=== PATIENT | female | born 1955 | race Caucasian/White ===

== ENCOUNTER 2018-11-28 01:02 | Emergency (ER) | payer BC ==
--- NOTE | 2018-11-28 01:20 | EDM.PDOC ---
ED HPI GENERAL MEDICAL PROBLEM - General Chief Complaint: Cardiovascular Problem Stated Complaint: HIGH BLOOD PRESSURE Time Seen by Provider: 11/28/18 01:20 Source of Information: Reports: Patient - History of Present Illness INITIAL COMMENTS - FREE TEXT/NARRATIVE: HISTORY AND PHYSICAL: History of present illness: [Patient presents with hypertension Over the last couple of weeks she has had an admission for A. fib with RVR, started on 0 to at that time since she's been checking her blood pressures fairly frequently tonight she had some elevated readings which prompted more taking of blood pressure which I feel resulted in more elevation of the blood pressure, he has some anxiety about her health However with reassurance her blood pressures fairly well-controlled in town in the 140s over 70s at this time She has no symptoms whatsoever such as fever nausea vomiting diarrhea constipation chest pain shortness breath headache dizziness palpitation no bowel or urine symptoms ] Review of systems: As per history of present illness and below otherwise all systems reviewed and negative. Past medical history: As per history of present illness and as reviewed below otherwise noncontributory. Surgical history: As per history of present illness and as reviewed below otherwise noncontributory. Social history: No reported history of drug or alcohol abuse. Family history: As per history of present illness and as reviewed below otherwise noncontributory. Physical exam: HEENT: Atraumatic, normocephalic, pupils reactive, negative for conjunctival pallor or scleral icterus, mucous membranes moist, throat clear, neck supple, nontender, trachea midline. Lungs: Clear to auscultation, breath sounds equal bilaterally, chest nontender. Heart: S1S2, regular, negative for clicks, rubs, or JVD. Abdomen: Soft, nondistended, nontender. Negative for masses or hepatosplenomegaly. Negative for costovertebral tenderness. Pelvis: Stable nontender. Genitourinary: Deferred. Rectal: Deferred. Extremities: Atraumatic, negative for cords or calf pain. Neurovascular unremarkable. Neuro: Awake, alert, oriented. Cranial nerves II through XII unremarkable. Cerebellum unremarkable. Motor and sensory unremarkable throughout. Exam nonfocal. Diagnostics: []CBC CMP UA troponin EKG Chest 1 view Therapeutics: [] none Impression: [] medical screening exam anxiety about health Chronic history of baseline Definitive disposition and diagnosis as appropriate pending reevaluation and review of above. - Related Data Allergies Allergy/AdvReac Type Severity Reaction Status Date / Time apixaban [From Eliquis] Allergy Hives Verified 11/28/18 01:17 cephalexin monohydrate Allergy Rash Verified 11/28/18 01:17 [From Keflex] diltiazem [From Cardizem] Allergy Hives Verified 11/28/18 01:17 morphine Allergy Itching Verified 11/28/18 01:17 Home Meds: Home Meds hydroCHLOROthiazide [Hydrochlorothiazide] 1 tab PO DAILY 02/07/15 [History] Metoprolol Tartrate [Lopressor] 100 mg PO DAILY #30 tablet 11/06/18 [Rx] Rivaroxaban [Xarelto] 1 tab PO DAILY 11/28/18 [History] metFORMIN [Glucophage XR] 1 tab PO DAILY 11/28/18 [History] Past Medical History HEENT History: Reports: None Cardiovascular History: Reports: Afib, Hypertension Respiratory History: Reports: None Gastrointestinal History: Reports: None Genitourinary History: Reports: None [employer]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: Musculoskeletal History: Reports: None Neurological History: Reports: None Psychiatric History: Reports: None Endocrine/Metabolic History: Reports: None Hematologic History: Reports: None Immunologic History: Reports: None Oncologic (Cancer) History: Reports: None Dermatologic History: Reports: None - Infectious Disease History Infectious Disease History: Reports: Chicken Pox, Measles, Shingles - Past Surgical History Head Surgeries/Procedures: Reports: None GI Surgical History: Reports: Cholecystectomy Female Surgical History: Reports: Section, Cystectomy, Hysterectomy , Oophorectomy, Tubal Ligation, Other (See Below) Musculoskeletal Surgical History: Reports: Hip Replacement, Joint Replacement, Knee Replacement, Other (See Below) Social & Family History - Family History Family Medical History: Noncontributory - Caffeine Use Caffeine Use: Reports: Coffee ED ROS GENERAL - Review of Systems Review Of Systems: See Below ED EXAM, GENERAL - Physical Exam Exam: See Below Course - Vital Signs Last Recorded V/S: Last Vital Signs Temp 96.6 F 11/28/18 01:02 Pulse 51 L 11/28/18 02:03 Resp 16 11/28/18 02:03 BP 148/76 H 11/28/18 02:03 Pulse Ox 94 L 11/28/18 02:03 - Orders/Labs/Meds Orders: Active Orders 24 hr Category Date Time Status EKG 12 Lead [EKG Documentation Completion] [RC] STAT Care 11/28/18 02:12 Active Labs: Laboratory Tests 11/28/18 11/28/18 11/28/18 Range/Units 01:40 01:40 01:40 WBC 6.59 (4.0-11.0) K/uL RBC 4.86 (4.30-5.90) M/uL Hgb 14.3 (12.0-16.0) g/dL Hct 42.3 (36.0-46.0) % MCV 87.0 (80.0-98.0) fL MCH 29.4 (27.0-32.0) pg MCHC 33.8 (31.0-37.0) g/dL RDW Std Deviation 44.8 (28.0-62.0) fl RDW Coeff of Piyush 14 (11.0-15.0) % Plt Count 208 (150-400) K/uL MPV 11.20 (7.40-12.00) fL Neut % (Auto) 83.3 H (48.0-80.0) % Lymph % (Auto) 12.7 L (16.0-40.0) % [place] % (Auto) 3.2 (0.0-15.0) % Eos % (Auto) 0.3 (0.0-7.0) % Baso % (Auto) 0.5 (0.0-1.5) % Neut # (Auto) 5.5 (1.4-5.7) K/uL Lymph # (Auto) 0.8 (0.6-2.4) K/uL [place]ruff # (Auto) 0.2 (0.0-0.8) K/uL Eos # (Auto) 0.0 (0.0-0.7) K/uL Baso # (Auto) 0.0 (0.0-0.1) K/uL Nucleated RBC % 0.0 /100WBC Nucleated RBCs # 0 K/uL INR 1.44 Sodium (136-145) mmol/L Potassium (3.5-5.1) mmol/L Chloride (98-107) mmol/L Carbon Dioxide (21.0-32.0) mmol/L BUN (7.0-18.0) mg/dL Creatinine (0.6-1.0) mg/dL Est Cr Clr Drug Dosing mL/min Estimated GFR (MDRD) ml/min Glucose (74-106) mg/dL Calcium (8.5-10.1) mg/dL Total Bilirubin (0.2-1.0) mg/dL AST (15-37) IU/L ALT (14-63) IU/L Alkaline Phosphatase (46-116) U/L Troponin I (0.000-0.056) ng/mL Total Protein (6.4-8.2) g/dL Albumin (3.4-5.0) g/dL Globulin (2.6-4.0) g/dL Albumin/Globulin Ratio (0.9-1.6) Urine Color YELLOW Urine Appearance CLEAR Urine pH 5.5 (5.0-8.0) Ur Specific [place] <= 1.005 (1.001-1.035) Urine Protein NEGATIVE (NEGATIVE) mg/dL Urine Glucose (UA) NEGATIVE (NEGATIVE) mg/dL Urine Ketones NEGATIVE (NEGATIVE) mg/dL Urine Occult Blood SMALL H (NEGATIVE) Urine Nitrite NEGATIVE (NEGATIVE) Urine Bilirubin NEGATIVE (NEGATIVE) Urine Urobilinogen 0.2 (<2.0) EU/dL Ur Leukocyte Esterase NEGATIVE (NEGATIVE) Urine RBC 0-2 (0-2/HPF) Urine WBC 0-1 (0-5/HPF) Ur Epithelial Cells FEW (NONE-FEW) Urine Bacteria RARE (NEGATIVE) 11/28/18 Range/Units 01:40 WBC (4.0-11.0) K/uL RBC (4.30-5.90) M/uL Hgb (12.0-16.0) g/dL Hct (36.0-46.0) % MCV (80.0-98.0) fL MCH (27.0-32.0) pg MCHC (31.0-37.0) g/dL RDW Std Deviation (28.0-62.0) fl RDW Coeff of Piyush (11.0-15.0) % Plt Count (150-400) K/uL MPV (7.40-12.00) fL Neut % (Auto) (48.0-80.0) % Lymph % (Auto) (16.0-40.0) % [place]ruff % (Auto) (0.0-15.0) % Eos % (Auto) (0.0-7.0) % Baso % (Auto) (0.0-1.5) % Neut # (Auto) (1.4-5.7) K/uL Lymph # (Auto) (0.6-2.4) K/uL [place] # (Auto) (0.0-0.8) K/uL Eos # (Auto) (0.0-0.7) K/uL Baso # (Auto) (0.0-0.1) K/uL Nucleated RBC % /100WBC Nucleated RBCs # K/uL INR Sodium 138 (136-145) mmol/L Potassium 3.8 (3.5-5.1) mmol/L Chloride 100 (98-107) mmol/L Carbon Dioxide 26.9 (21.0-32.0) mmol/L BUN 22 H (7.0-18.0) mg/dL Creatinine 1.0 (0.6-1.0) mg/dL Est Cr Clr Drug Dosing 58.84 mL/min Estimated GFR (MDRD) 56.2 ml/min Glucose 126 H (74-106) mg/dL Calcium 8.9 (8.5-10.1) mg/dL Total Bilirubin 0.4 (0.2-1.0) mg/dL AST 19 (15-37) IU/L ALT 36 (14-63) IU/L Alkaline Phosphatase 66 (46-116) U/L Troponin I < 0.050 (0.000-0.056) ng/mL Total Protein 6.9 (6.4-8.2) g/dL Albumin 3.4 (3.4-5.0) g/dL Globulin 3.5 (2.6-4.0) g/dL Albumin/Globulin Ratio 1.0 (0.9-1.6) Urine Color Urine Appearance Urine pH (5.0-8.0) Ur Specific [place] (1.001-1.035) Urine Protein (NEGATIVE) mg/dL Urine Glucose (UA) (NEGATIVE) mg/dL Urine Ketones (NEGATIVE) mg/dL Urine Occult Blood (NEGATIVE) Urine Nitrite (NEGATIVE) Urine Bilirubin (NEGATIVE) Urine Urobilinogen (<2.0) EU/dL Ur Leukocyte Esterase (NEGATIVE) Urine RBC (0-2/HPF) Urine WBC (0-5/HPF) Ur Epithelial Cells (NONE-FEW) Urine Bacteria (NEGATIVE) Meds: Medications Discontinued Medications Generic Name Dose Route Start Last Admin Trade Name Maria Elena PRN Reason Stop Dose Admin Lorazepam 1 mg 11/28/18 02:00 11/28/18 02:10 Ativan PO 11/28/18 02:01 Not Given ONETIME ONE Departure - Departure Time of Disposition: 02:35 Disposition: Home, Self-Care 01 Condition: Good Clinical Impression: Anxiety about health, Encounter for medical screening examination Referrals: Clare Wright NP [Primary Care Provider] - Forms: ED Department Discharge Additional Instructions: The following information is given to patients seen in the emergency department who are being discharged to home. This information is to outline your options for follow-up care. We provide all patients seen in our emergency department with a follow-up referral. The need for follow-up, as well as the timing and circumstances, are variable depending upon the specifics of your emergency department visit. If you don't have a primary care physician on staff, we will provide you with a referral. We always advise you to contact your personal physician following an emergency department visit to inform them of the circumstance of the visit and for follow-up with them and/or the need for any referrals to a consulting specialist. The emergency department will also refer you to a specialist when appropriate. This referral assures that you have the opportunity for follow-up care with a specialist. All of these measure are taken in an effort to provide you with optimal care, which includes your follow-up. Under all circumstances we always encourage you to contact your private physician who remains a resource for coordinating your care. When calling for follow-up care, please make the office aware that this follow-up is from your recent emergency room visit. If for any reason you are refused follow-up, please contact the [facility] emergency department at and asked to speak to the emergency department charge nurse. - My Orders Last 24 Hours: My Active Orders 11/28/18 02:12 EKG 12 Lead [EKG Documentation Completion] [RC] STAT - Assessment/Plan Last 24 Hours: My Active Orders 11/28/18 02:12 EKG 12 Lead [EKG Documentation Completion] [RC] STAT
[2018-11-28] MEDS ORDERED: LORazepam 1 MG Tab PO ONE (02:00)
[2018-11-28 02:22] LABS: CHLORIDE,CL 100 mmol/L (98-107); SODIUM,NA 138 mmol/L (136-145)
[2018-11-28 02:38] VITALS: BP 148/73
== END 2018-11-28 02:45 | disposition home or self-care (01) ==
LOC: MW.ED 01:02
DX: I10 Essential (primary) hypertension (principal); F41.9 Anxiety disorder, unspecified; I48.91 Unspecified atrial fibrillation; Z79.01 Long term (current) use of anticoagulants; Z79.84 Long term (current) use of oral hypoglycemic drugs; Z79.899 Other long term (current) drug therapy; Z88.4 Allergy status to anesthetic agent; Z88.1 Allergy status to other antibiotic agents; Z88.8 Allergy status to other drugs, medicaments and biological substances; Z90.710 Acquired absence of both cervix and uterus; Z90.49 Acquired absence of other specified parts of digestive tract; Z98.890 Other specified postprocedural states
CPT/HCPCS: 36415; 80053; 81001; 84484; 85025; 85610; 93005; 99284-25

== ENCOUNTER 2018-12-04 23:58 | Emergency (ER) | payer BC ==
[2018-12-05] MEDS ORDERED: Diltiazem 25 MG/5 ML SDV IVPUSH ONE (00:07)
[2018-12-05] MEDS ORDERED: Sodium Chloride 0.9% 10 ML Syringe FLUSH PRN (00:07)
[2018-12-05] MEDS ORDERED: Sodium Chloride 0.9% 2.5 ML Syringe FLUSH PRN (00:07)
--- NOTE | 2018-12-05 00:09 | EDM.PDOC ---
ED HPI GENERAL MEDICAL PROBLEM - General Stated Complaint: IRREGULAR HEART BEAT Time Seen by Provider: 12/05/18 00:06 - History of Present Illness INITIAL COMMENTS - FREE TEXT/NARRATIVE: HISTORY AND PHYSICAL: History of present illness: Patient is a 63-year-old female history of atrial fibrillation was recently diagnosed in October for which she was treated and converted sinus rhythm is currently on Xarelto and metoprolol who presents tonight with concern of palpitations Review of systems: As per history of present illness and below otherwise all systems reviewed and negative. Past medical history: As per history of present illness and as reviewed below otherwise noncontributory. Surgical history: As per history of present illness and as reviewed below otherwise noncontributory. Social history: No reported history of drug or alcohol abuse. Family history: As per history of present illness and as reviewed below otherwise noncontributory. Physical exam: HEENT: Atraumatic, normocephalic, pupils reactive, negative for conjunctival pallor or scleral icterus, mucous membranes moist, throat clear, neck supple, nontender, trachea midline. Lungs: Clear to auscultation, breath sounds equal bilaterally, chest nontender. Heart: S1S2, irregularly irregular, negative for clicks, rubs, or JVD. Abdomen: Soft, nondistended, nontender. Negative for masses or hepatosplenomegaly. Negative for costovertebral tenderness. Pelvis: Stable nontender. Genitourinary: Deferred. Rectal: Deferred. Extremities: Atraumatic, negative for cords or calf pain. Neurovascular unremarkable. Neuro: Awake, alert, oriented. Cranial nerves II through XII unremarkable. Cerebellum unremarkable. Motor and sensory unremarkable throughout. Exam nonfocal. Diagnostics: CBC CMP troponin chest x-ray EKG Therapeutics: IV O2 monitor Cardizem 20 mg IV Impression: #1 atrial fib/flutter with rapid ventricular response Definitive disposition and diagnosis as appropriate pending reevaluation and review of above. - Related Data Allergies Allergy/AdvReac Type Severity Reaction Status Date / Time apixaban [From Eliquis] Allergy Hives Verified 12/05/18 00:15 cephalexin monohydrate Allergy Rash Verified 12/05/18 00:15 [From Keflex] diltiazem [From Cardizem] Allergy Hives Verified 12/05/18 00:15 morphine Allergy Itching Verified 12/05/18 00:15 Home Meds: Home Meds hydroCHLOROthiazide [Hydrochlorothiazide] 1 tab PO DAILY 02/07/15 [History] Metoprolol Tartrate [Lopressor] 100 mg PO DAILY #30 tablet 11/06/18 [Rx] Rivaroxaban [Xarelto] 1 tab PO DAILY 11/28/18 [History] metFORMIN [Glucophage XR] 1 tab PO DAILY 11/28/18 [History] Past Medical History HEENT History: Reports: None Cardiovascular History: Reports: Afib, Hypertension Respiratory History: Reports: None Gastrointestinal History: Reports: None Genitourinary History: Reports: None [employer]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: Musculoskeletal History: Reports: None Neurological History: Reports: None Psychiatric History: Reports: None Endocrine/Metabolic History: Reports: None Hematologic History: Reports: None Immunologic History: Reports: None Oncologic (Cancer) History: Reports: None Dermatologic History: Reports: None - Infectious Disease History Infectious Disease History: Reports: Chicken Pox, Measles, Shingles - Past Surgical History Head Surgeries/Procedures: Reports: None GI Surgical History: Reports: Cholecystectomy Female Surgical History: Reports: Section, Cystectomy, Hysterectomy , Oophorectomy, Tubal Ligation, Other (See Below) Musculoskeletal Surgical History: Reports: Hip Replacement, Joint Replacement, Knee Replacement, Other (See Below) Social & Family History - Family History Family Medical History: Noncontributory - Caffeine Use Caffeine Use: Reports: Coffee ED ROS GENERAL - Review of Systems Review Of Systems: ROS reveals no pertinent complaints other than HPI. ED EXAM, GENERAL - Physical Exam Exam: See Below (See dictation) Course - Vital Signs Text/Narrative:: Patient emergency department course has been unremarkable sure rate is been controlled well she was given an additional dose of metoprolol her cardiac enzymes been negative her symptoms of improved dramatically she is currently still in atrial fibrillation but with a controlled ventricular response I discussed with her her recent admission her workup and her current therapy and gave her options including transfer to another institution for observation in light of the absence of available beds here at this time patient requests discharge to home with follow-up in a.m. with her private medical doctor and keep your scheduled appointment on with cardiology. She remains without any chest pain shortness of breath nausea vomiting or diaphoresis. Last Recorded V/S: Last Vital Signs Temp 36.1 C 12/05/18 01:11 Pulse 112 H 01/22/19 01:48 Resp 16 12/05/18 01:11 BP 140/73 12/05/18 01:48 Pulse Ox 95 12/05/18 01:11 - Orders/Labs/Meds Orders: Active Orders 24 hr Category Date Time Status Cardiac Monitoring [RC] . DIRECTED Care 12/05/18 00:06 Active EKG Documentation Completion [RC] STAT Care 12/05/18 00:06 Active Oxygen Therapy, ED [RC] ASDIRECTED Care 12/05/18 00:06 Active Sodium Chloride 0.9% [Saline Flush] Med 12/05/18 00:07 Active 10 ml FLUSH ASDIRECTED PRN Sodium Chloride 0.9% [Saline Flush] Med 12/05/18 00:07 Active 2.5 ml FLUSH ASDIRECTED PRN Saline Lock Insert [OM.PC] Stat Oth 12/05/18 00:06 Ordered Medication Orders Sodium Chloride (Saline Flush) 10 ml FLUSH ASDIRECTED PRN PRN Reason: Keep Vein Open Last Admin: 12/05/18 00:35 Dose: 10 ml Sodium Chloride (Saline Flush) 2.5 ml FLUSH ASDIRECTED PRN PRN Reason: Keep Vein Open Last Admin: 12/05/18 00:35 Dose: 2.5 ml Labs: Laboratory Tests 12/05/18 12/05/18 Range/Units 00:10 00:10 WBC 9.00 (4.0-11.0) K/uL RBC 5.08 (4.30-5.90) M/uL Hgb 15.1 (12.0-16.0) g/dL Hct 44.6 (36.0-46.0) % MCV 87.8 (80.0-98.0) fL MCH 29.7 (27.0-32.0) pg MCHC 33.9 (31.0-37.0) g/dL RDW Std Deviation 46.9 (28.0-62.0) fl RDW Coeff of Piyush 15 (11.0-15.0) % Plt Count 198 (150-400) K/uL MPV 11.60 (7.40-12.00) fL Neut % (Auto) 72.2 (48.0-80.0) % Lymph % (Auto) 15.3 L (16.0-40.0) % [place] % (Auto) 9.7 (0.0-15.0) % Eos % (Auto) 2.0 (0.0-7.0) % Baso % (Auto) 0.8 (0.0-1.5) % Neut # (Auto) 6.5 H (1.4-5.7) K/uL Lymph # (Auto) 1.4 (0.6-2.4) K/uL [place] # (Auto) 0.9 H (0.0-0.8) K/uL Eos # (Auto) 0.2 (0.0-0.7) K/uL Baso # (Auto) 0.1 (0.0-0.1) K/uL Nucleated RBC % 0.0 /100WBC Nucleated RBCs # 0 K/uL Sodium 137 (136-145) mmol/L Potassium 3.9 (3.5-5.1) mmol/L Chloride 99 (98-107) mmol/L Carbon Dioxide 24.6 (21.0-32.0) mmol/L BUN 25 H (7.0-18.0) mg/dL Creatinine 0.9 (0.6-1.0) mg/dL Est Cr Clr Drug Dosing 65.38 mL/min Estimated GFR (MDRD) > 60.0 ml/min Glucose 114 H (74-106) mg/dL Calcium 10.0 (8.5-10.1) mg/dL Total Bilirubin 0.4 (0.2-1.0) mg/dL AST 21 (15-37) IU/L ALT 21 (14-63) IU/L Alkaline Phosphatase 71 (46-116) U/L Troponin I < 0.050 (0.000-0.056) ng/mL Total Protein 7.4 (6.4-8.2) g/dL Albumin 3.6 (3.4-5.0) g/dL Globulin 3.8 (2.6-4.0) g/dL Albumin/Globulin Ratio 0.9 (0.9-1.6) Meds: Medications Generic Name Dose Route Start Last Admin Trade Name Freq PRN Reason Stop Dose Admin Sodium Chloride 10 ml 12/05/18 00:07 12/05/18 00:35 Saline Flush FLUSH 10 ml ASDIRECTED PRN Administration Keep Vein Open Sodium Chloride 2.5 ml 12/05/18 00:07 12/05/18 00:35 Saline Flush FLUSH 2.5 ml ASDIRECTED PRN Administration Keep Vein Open Discontinued Medications Generic Name Dose Route Start Last Admin Trade Name Freq PRN Reason Stop Dose Admin Diltiazem HCl 25 mg 12/05/18 00:07 12/05/18 00:34 Diltiazem IVPUSH 12/05/18 00:08 25 mg ONETIME ONE Administration Metoprolol Tartrate 100 mg 12/05/18 01:40 12/05/18 01:48 Lopressor PO 12/05/18 01:41 100 mg ONETIME ONE Administration Departure - Departure Time of Disposition: 02:07 Disposition: Home, Self-Care 01 Condition: Good Clinical Impression: Atrial fibrillation with RVR - Discharge Information Additional Instructions: The following information is given to patients seen in the emergency department who are being discharged to home. This information is to outline your options for follow-up care. We provide all patients seen in our emergency department with a follow-up referral. The need for follow-up, as well as the timing and circumstances, are variable depending upon the specifics of your emergency department visit. If you don't have a primary care physician on staff, we will provide you with a referral. We always advise you to contact your personal physician following an emergency department visit to inform them of the circumstance of the visit and for follow-up with them and/or the need for any referrals to a consulting specialist. The emergency department will also refer you to a specialist when appropriate. This referral assures that you have the opportunity for followup care with a specialist. All of these measure are taken in an effort to provide you with optimal care, which includes your followup. Under all circumstances we always encourage you to contact your private physician who remains a resource for coordinating your care. When calling for followup care, please make the office aware that this follow-up is from your recent emergency room visit. If for any reason you are refused follow-up, please contact the [facility] emergency department at and asked to speak to the emergency department charge nurse. Continue current meds follow-up private medical doctor in a.m. and keep scheduled cardiology appointment return as needed as discussed[] - My Orders Last 24 Hours: My Active Orders 12/05/18 00:06 Cardiac Monitoring [RC] . DIRECTED EKG Documentation Completion [RC] STAT Oxygen Therapy, ED [RC] ASDIRECTED Saline Lock Insert [OM.PC] Stat 12/05/18 00:07 Sodium Chloride 0.9% [Saline Flush] 10 ml FLUSH ASDIRECTED PRN Sodium Chloride 0.9% [Saline Flush] 2.5 ml FLUSH ASDIRECTED PRN - Assessment/Plan Last 24 Hours: My Active Orders 12/05/18 00:06 Cardiac Monitoring [RC] . DIRECTED EKG Documentation Completion [RC] STAT Oxygen Therapy, ED [RC] ASDIRECTED Saline Lock Insert [OM.PC] Stat 12/05/18 00:07 Sodium Chloride 0.9% [Saline Flush] 10 ml FLUSH ASDIRECTED PRN Sodium Chloride 0.9% [Saline Flush] 2.5 ml FLUSH ASDIRECTED PRN
--- NOTE | 2018-12-05 00:40 | CR ---
HISTORY: Irregular heart beat COMPARISON: 11/06/2018 FINDINGS: A portable erect AP view of the chest was obtained at 0011 hours. The lungs remain clear. No focal or diffuse infiltrates are present. The heart remains normal in size. The mediastinum is normal in appearance. The osseous structures are normal in appearance for the patient`s age. IMPRESSION: NORMAL PORTABLE CHEST SINGLE VIEW. Dictated by Sanjay Lange MD @ Dec 05 2018 12:38AM Signed by Dr. Sanjay Lange @ Dec 05 2018 12:39AM
[2018-12-05 01:29] LABS: CHLORIDE,CL 99 mmol/L (98-107); SODIUM,NA 137 mmol/L (136-145)
[2018-12-05] MEDS ORDERED: Metoprolol Tartrate 50 MG Tab PO ONE (01:40)
[2018-12-05 06:24] VITALS: BP 139/79
== END 2018-12-05 06:21 | disposition home or self-care (01) ==
LOC: MW.ED 23:58
DX: I48.91 Unspecified atrial fibrillation (principal); I10 Essential (primary) hypertension; Z79.899 Other long term (current) drug therapy; Z88.5 Allergy status to narcotic agent
CPT/HCPCS: 36415; 71045; 80053; 84484; 85025; 93005; 96374; 99285; A9270; J3490; 99284

== ENCOUNTER 2021-12-04 09:18 | Observation (INO) | payer MEDICARE, BC ==
[2021-12-04] MEDS ORDERED: Sodium Chloride 0.9% 2.5 ML Syringe FLUSH PRN (10:13)
[2021-12-04] MEDS ORDERED: Acetaminophen 325 MG Tab PO PRN (10:13)
[2021-12-04] MEDS ORDERED: Sodium Chloride 0.9% 10 ML Syringe FLUSH PRN (10:13)
[2021-12-04] MEDS ORDERED: Flecainide 100 MG Tab PO ONE (10:28)
[2021-12-04 11:08] LABS: POTASSIUM,K 4.1 mmol/L (3.5-5.1)
[2021-12-04] MEDS ORDERED: Magnesium Sulfate/Water 2 GM in Premix Bag 1 BAG IV ONE (11:30)
[2021-12-04] MEDS ORDERED: Rivaroxaban 10 MG Tab PO SCH (21:00)
[2021-12-05 05:49] LABS: CARBON DIOXIDE,CO2 31.7 mmol/L (21.0-32.0); POTASSIUM,K 4.6 mmol/L (3.5-5.1)
[2021-12-05] MEDS ORDERED: CARVEDILOL PHOSPHATE 80 MG PO SCH (09:00)
[2021-12-05] MEDS ORDERED: Lisinopril 10 MG Tab PO SCH (09:00)
[2021-12-05] MEDS ORDERED: Hydrochlorothiazide 25 MG Tab PO SCH (09:00)
[2021-12-05 11:06] VITALS: BP 109/96
== END 2021-12-05 10:30 | disposition home or self-care (01) ==
LOC: MW.ICU 09:18
PROVIDERS: ADMIT Internal Medicine; ATTEND Internal Medicine
DX: I48.0 Paroxysmal atrial fibrillation (principal); I10 Essential (primary) hypertension; G47.33 Obstructive sleep apnea (adult) (pediatric); R73.03 Prediabetes; Z88.8 Allergy status to other drugs, medicaments and biological substances; Z88.5 Allergy status to narcotic agent; Z79.899 Other long term (current) drug therapy; Z98.890 Other specified postprocedural states; Z20.822 Contact with and (suspected) exposure to COVID-19
CPT/HCPCS: 36415; 80048; 83735; 84132; 93005; 96365; 96366; A9270; G0378; G0379; J3475; U0002

== ENCOUNTER 2022-03-21 06:17 | Inpatient (IN) | payer MEDICARE, BC ==
[2022-03-21 08:12] LABS: BLOOD UREA NITROGEN,BUN 19 mg/dL (7.0-18.0); CARBON DIOXIDE,CO2 29.3 mmol/L (21.0-32.0); CHLORIDE,CL 102 mmol/L (98-107); GLUCOSE RANDOM 136 mg/dL (74-106); POTASSIUM,K 3.4 mmol/L (3.5-5.1); SODIUM,NA 139 mmol/L (136-145)
[2022-03-21] MEDS ORDERED: Potassium Chloride 10% 20 MEQ/15 ML Soln 30 ML UD Cup PO ONE (08:45)
[2022-03-21] MEDS ORDERED: Ondansetron 4 MG Tab.DIS PO ONE (09:00)
[2022-03-21] MEDS ORDERED: Sulfamethoxazole/Trimethoprim 800-160 MG Tab PO STA (10:25)
[2022-03-21] MEDS ORDERED: Furosemide 40 MG/4 ML VIAL IVPUSH STA (10:36)
[2022-03-21] MEDS ORDERED: Ondansetron 4 MG/2 ML SDV IVPUSH PRN (15:09)
[2022-03-21] MEDS: Pantoprazole 40 MG in Sodium Chloride 0.9% 10 ML IVPUSH SCH (15:33)
[2022-03-21] MEDS: Rivaroxaban 10 MG Tab PO SCH (20:42)
[2022-03-21] MEDS: Furosemide 40 MG/4 ML VIAL IVPUSH SCH (20:43)
[2022-03-21] MEDS ORDERED: Flecainide 100 MG Tab PO SCH (21:00)
[2022-03-21] MEDS ORDERED: Levofloxacin 750 MG Tab PO SCH (21:00)
[2022-03-21] MEDS ORDERED: CARVEDILOL PHOSPHATE 80 MG PO SCH (21:00)
[2022-03-22 07:11] LABS: CARBON DIOXIDE,CO2 33.2 mmol/L (21.0-32.0); POTASSIUM,K 3.1 mmol/L (3.5-5.1)
[2022-03-22] MEDS: Pantoprazole 40 MG in Sodium Chloride 0.9% 10 ML IVPUSH SCH (09:37)
[2022-03-22] MEDS: Furosemide 40 MG/4 ML VIAL IVPUSH SCH ×2 (09:38→20:09)
[2022-03-22] MEDS: Carvedilol 25 MG Tab PO SCH ×2 (09:38→20:08)
[2022-03-22] MEDS: Lisinopril 10 MG Tab PO SCH (09:38)
[2022-03-22] MEDS: Potassium Chloride 20 MEQ Tab.ER PO SCH ×2 (09:38→13:15)
[2022-03-22] MEDS: Hydrochlorothiazide 25 MG Tab PO SCH (09:38)
[2022-03-22] MEDS: Flecainide 100 MG Tab PO SCH ×2 (13:15→20:08)
[2022-03-22] MEDS: Levofloxacin 250 MG Tab PO SCH (13:44)
[2022-03-22] MEDS ORDERED: Levofloxacin 750 MG Tab PO SCH (14:00)
[2022-03-22] MEDS: Rivaroxaban 10 MG Tab PO SCH (20:08)
[2022-03-23 07:05] LABS: CARBON DIOXIDE,CO2 30.9 mmol/L (21.0-32.0); POTASSIUM,K 3.5 mmol/L (3.5-5.1)
[2022-03-23] MEDS ORDERED: Pantoprazole 40 MG Tab.CR PO SCH (07:30)
[2022-03-23] MEDS: Potassium Chloride 20 MEQ Tab.ER PO SCH ×2 (08:02→13:57)
[2022-03-23] MEDS: Hydrochlorothiazide 25 MG Tab PO SCH (08:02)
[2022-03-23] MEDS: Carvedilol 25 MG Tab PO SCH (08:03)
[2022-03-23 08:04] VITALS: BP 116/62; PULSE 54
[2022-03-23] MEDS: Lisinopril 10 MG Tab PO SCH (08:04)
[2022-03-23] MEDS: Furosemide 40 MG/4 ML VIAL IVPUSH SCH (08:04)
[2022-03-23] MEDS: Flecainide 100 MG Tab PO SCH (08:12)
[2022-03-23] MEDS: Levofloxacin 250 MG Tab PO SCH (13:57)
== END 2022-03-23 16:00 | disposition home or self-care (01) | DRG 291 ==
LOC: MW.ED 06:17 → MW.MS 10:52
PROVIDERS: ADMIT Student in an Organized Health Care Education/Training Program; ATTEND Student in an Organized Health Care Education/Training Program
DX: I11.0 Hypertensive heart disease with heart failure (principal); R09.02 Hypoxemia; I48.91 Unspecified atrial fibrillation; J96.01 Acute respiratory failure with hypoxia; N39.0 Urinary tract infection, site not specified; E87.6 Hypokalemia; R73.9 Hyperglycemia, unspecified; Z20.822 Contact with and (suspected) exposure to COVID-19; I50.9 Heart failure, unspecified; M19.90 Unspecified osteoarthritis, unspecified site; Z96.649 Presence of unspecified artificial hip joint; Z96.659 Presence of unspecified artificial knee joint; R73.03 Prediabetes; I48.0 Paroxysmal atrial fibrillation; G47.33 Obstructive sleep apnea (adult) (pediatric); Z86.19 Personal history of other infectious and parasitic diseases; Z79.01 Long term (current) use of anticoagulants; Z79.899 Other long term (current) drug therapy; Z88.1 Allergy status to other antibiotic agents; Z88.5 Allergy status to narcotic agent; Z88.8 Allergy status to other drugs, medicaments and biological substances; Z87.01 Personal history of pneumonia (recurrent); Z90.49 Acquired absence of other specified parts of digestive tract; Z90.710 Acquired absence of both cervix and uterus
CPT/HCPCS: 36415; 71045; 80053; 81001; 83735; 83880; 84484 ×2; 85025; 85379; 85610; 87086; 93005; 96374; 99291; A9270 ×3; J1940; U0002; 80048; 84100; 87088; 87186; 93010; 93306; 99221; 99232; 99238; C9113; J3490

== ENCOUNTER 2022-12-20 12:03 | Emergency (ER) | payer MEDICARE, BC ==
[2022-12-20 13:18] LABS: CARBON DIOXIDE,CO2 27.9 mmol/L (21.0-32.0)
[2022-12-20 14:39] VITALS: BP 100/60; PULSE 69
== END 2022-12-20 14:39 | disposition home or self-care (01) ==
LOC: MW.ED 12:03
DX: R07.89 Other chest pain (principal); H53.8 Other visual disturbances; I10 Essential (primary) hypertension; M19.90 Unspecified osteoarthritis, unspecified site; I48.91 Unspecified atrial fibrillation; Z88.8 Allergy status to other drugs, medicaments and biological substances; Z88.1 Allergy status to other antibiotic agents; Z88.5 Allergy status to narcotic agent; Z79.01 Long term (current) use of anticoagulants; Z79.899 Other long term (current) drug therapy
CPT/HCPCS: 36415; 80048; 81001; 84484; 85025; 93005; 99283; 99285

== ENCOUNTER 2025-09-10 09:07 | Emergency (ER) | payer MEDICARE, BC ==
[2025-09-10 10:16] LABS: BASOPHILS ABSOLUTE AUTO 0.10 K/uL (0.00-0.20); BASOPHILS PERCENT AUTO 1.1 % (0.0-1.0); EOSINOPHILS ABSOLUTE AUTO 0.09 K/uL (0.00-0.45); EOSINOPHILS PERCENT AUTO 1.0 % (0.0-6.0); IMMATURE GRAN ABSOLUTE AUTO 0.01 K/uL (0.00-0.05); IMMATURE GRAN PERCENT AUTO 0.1 % (0.0-0.4); LYMPHOCYTES ABSOLUTE AUTO 2.94 K/uL (1.00-4.80); LYMPHOCYTES PERCENT AUTO 33.4 % (24.0-44.0); MEAN PLATELET VOLUME 11.0 fL (9.4-12.3); MONOCYTES ABSOLUTE AUTO 0.94 K/uL (0.00-0.80); MONOCYTES PERCENT AUTO 10.7 % (0.0-8.0); NEUTROPHILS ABSOLUTE AUTO 4.73 K/uL (1.80-7.70); NEUTROPHILS PERCENT AUTO 53.7 % (41.0-71.0); NRBC ABSOLUTE 0.00 K/uL (0.00-0.02); NRBC PERCENT 0.0 /100WBC (0.0-0.2); PLATELET COUNT,PLT 262 K/uL (150-400); RED BLOOD CELL COUNT 5.96 M/uL (4.10-5.30); WHITE BLOOD CELL COUNT,WBC 8.81 K/uL (3.9-11.3)
[2025-09-10 10:32] LABS: A/G RATIO 1.0 (0.9-1.6); ALANINE AMINOTRANSFERASE,ALT 25.0 IU/L (14-63); ASPARTATE AMNIOTRANSFERASE,AST 26.0 IU/L (15-37); BILIRUBIN TOTAL 0.8 mg/dL (0.2-1.0); BLOOD UREA NITROGEN,BUN 26.0 mg/dL (7.0-18.0); CARBON DIOXIDE,CO2 30.7 mmol/L (21.0-32.0); CHLORIDE,CL 100.0 mmol/L (98-107); CREATININE 1.2 mg/dL (0.6-1.0); EST CRCL DRUG DOSING (CG) 45.26 mL/min; GLUCOSE RANDOM 111.0 mg/dL (74-106); POTASSIUM,K 4.4 mmol/L (3.5-5.1); PROTEIN TOTAL,TP 8.1 g/dL (6.4-8.2); SODIUM,NA 138.0 mmol/L (136-145)
[2025-09-10] MEDS ORDERED: Sodium Chloride 0.9% 2.5 ML Syringe FLUSH PRN (10:38)
[2025-09-10] MEDS ORDERED: Sodium Chloride 0.9% 10 ML Syringe FLUSH PRN (10:38)
[2025-09-10 10:39] LABS: ESTIMATED GFR 49.0 mL/min (>60)
[2025-09-10 11:06] LABS: PRO B-TYPE NATRIUR PEPT,BNPPRO 2553 pg/mL (0-125)
[2025-09-10] MEDS: Diltiazem 25 MG/5 ML SDV IVPUSH ONE ×2 (14:34→15:15)
[2025-09-10 15:19] VITALS: BP 122/77; PULSE 105
== END 2025-09-10 16:12 ==
LOC: MW.ED 09:07
DX: I48.91 Unspecified atrial fibrillation (principal); I11.0 Hypertensive heart disease with heart failure; I50.9 Heart failure, unspecified; Z86.16 Personal history of COVID-19; R79.89 Other specified abnormal findings of blood chemistry; Z88.1 Allergy status to other antibiotic agents; Z88.5 Allergy status to narcotic agent; Z88.8 Allergy status to other drugs, medicaments and biological substances; Z79.01 Long term (current) use of anticoagulants; Z79.899 Other long term (current) drug therapy
CPT/HCPCS: 36415; 71046; 80053; 83735; 83880; 84484; 85025; 85379; 93005; 96374; 96376; 99285; A9270; J1163; 93010